=== PATIENT | male | born 1970 | race Caucasian/White ===

== ENCOUNTER 2024-08-13 08:32 | Emergency (ER) | payer OTHER ==
[2024-08-13] MEDS ORDERED: Ketorolac Tromethamine 30 MG (1 mL) VIAL ONE (09:33)
== END 2024-08-13 09:42 | disposition home or self-care (01) ==
LOC: MADERS 08:32
DX: S83.91XA Sprain of unspecified site of right knee, initial encounter (principal); F17.210 Nicotine dependence, cigarettes, uncomplicated; W18.42XA Slipping, tripping and stumbling without falling due to stepping into hole or opening, initial encounter
CPT/HCPCS: 96372; 99283; J1885